=== PATIENT | male | born 1990 | race African-American/Black ===

== ENCOUNTER 2017-04-03 06:36 | Observation (INO) | payer MEDICARE ==
[2017-04-03 06:51] VITALS: BMI 23.0
[2017-04-03] MEDS ORDERED: SODIUM CHLORIDE 1,000 ML IV STA (07:07)
--- NOTE | 2017-04-03 07:10 | PDOC ---
History of Present Illness - General Chief Complaint: Asthma Stated Complaint: DIFFICULTY BREATHING Time Seen by Provider: 04/03/17 07:00 History Source: Patient Exam Limitations: No Limitations - History of Present Illness Initial Comments: 26 yo M history asthma presents with SOB x1 day. He states that he works at [employer], was exposed to dust, started to have difficulty breathing and cough. He c/o wheezing. +Recent upper respiratory infection. Last asthma exacerbation 3 days ago. +Subjective fever. Past History - Past Medical History Allergies/Adverse Reactions: Allergies Allergy/AdvReac Type Severity Reaction Status Date / Time shellfish derived Allergy Verified 04/03/17 06:51 Home Medications: Ambulatory Orders Albuterol Sulfate Inhaler - [Ventolin Hfa Inhaler -] 1 - 2 inh PO Q4H 04/03/17 Asthma: Yes - Psycho/Social/Smoking Cessation Hx Anxiety: No Suicidal Ideation: No Smoking Status: No Smoking History: Never smoked Have you smoked in the past 12 months: No Number of Cigarettes Smoked Daily: 0 Information on smoking cessation initiated: No Hx Alcohol Use: No Drug/Substance Use Hx: No Substance Use Type: None Review of Systems - Review of Systems Able to Perform ROS?: Yes Comments:: GENERAL/CONSTITUTIONAL: +Subjective fever, weakness. HEAD, EYES, EARS, NOSE AND THROAT: No change in vision. No ear pain or discharge. No sore throat. CARDIOVASCULAR: No chest pain or shortness of breath. RESPIRATORY:+Cough and wheezing. No hemoptysis. GASTROINTESTINAL: No nausea, vomiting, diarrhea or constipation. GENITOURINARY: No dysuria, frequency, or change in urination. MUSCULOSKELETAL: No joint or muscle swelling or pain. No neck or back pain. SKIN: No rash NEUROLOGIC: No headache, vertigo, loss of consciousness, or change in strength/ sensation. ENDOCRINE: No increased thirst. No abnormal weight change. HEMATOLOGIC/LYMPHATIC: No anemia, easy bleeding, or history of blood clots. ALLERGIC/IMMUNOLOGIC: No hives or skin allergy. *Physical Exam - Vital Signs Last Vital Signs Temp Pulse Resp BP Pulse Ox 98.1 F 110 H 20 130/100 100 04/03/17 06:38 04/03/17 06:38 04/03/17 06:38 04/03/17 06:38 04/03/17 06:38 - Physical Exam Comments: GENERAL: Awake, alert, and fully oriented, in no acute distress HEAD: No signs of trauma EYES: PERRLA, EOMI, sclera anicteric, conjunctiva clear ENT: Auricles normal inspection, hearing grossly normal, nares patent, oropharynx clear without exudates. Moist mucosa NECK: Normal ROM, supple, no lymphadenopathy, JVD, or masses LUNGS: Diffuse exp wheezes. Dec air entry B/L. Able to speak full sentences. HEART: Regular rate and rhythm, normal S1 and S2, no murmurs, rubs or gallops ABDOMEN: Soft, nontender, normoactive bowel sounds. No guarding, no rebound. No masses EXTREMITIES: Normal range of motion, no edema. No clubbing or cyanosis. No cords, erythema, or tenderness NEUROLOGICAL: Cranial nerves II through XII grossly intact. Normal speech, normal gait SKIN: Warm, Dry, normal turgor, no rashes or lesions noted. ED Treatment Course - LABORATORY CBC & Chemistry Diagram: 04/03/17 10:30 04/03/17 10:30 Medical Decision Making - Medical Decision Making 04/03/17 10:15 XR results d/w patient. Will obtain CT. Currently comfortable in bed, no distress. 04/03/17 11:40 Case d/w hospitalist, will admit. *DC/Admit/Observation/Transfer Diagnosis at time of Disposition: Pneumomediastinum, Pneumopericardium, Asthma exacerbation - Discharge Dispostion Condition at time of disposition: Stable Admit: Yes
[2017-04-03] MEDS ORDERED: ALBUTEROL SO4 2.5/IPRATROPIUM 0.5 INH SOL 3 ML VIAL.NEB. NEB ONE (07:21)
[2017-04-03] MEDS: ALBUTEROL SO4 2.5/IPRATROPIUM 0.5 INH SOL 3 ML VIAL.NEB. NEB SCH ×3 (07:23→08:01)
[2017-04-03 10:37] LABS: BASOPHIL 0.2 % (0-2.0); MCH 30.7 pg (25.7-33.7); MCHC 32.3 g/dl (32.0-35.9); MEAN CELL VOLUME 94.9 fl (80-96); MEAN PLT VOLUME 8.1 fl (7.5-11.1); NEUTROPHILS 95.1 % (42.8-82.8); PLATELET COUNT 152 K/MM3 (134-434); WHITE BLOOD COUNT 11.3 K/mm3 (4.0-10.0)
[2017-04-03 10:59] LABS: ALBUMIN 4.4 g/dl (3.4-5.0); ALK PHOS 117 U/L (45-117); ANION GAP 7 (8-16); BILIRUBIN,TOTAL 0.3 mg/dL (0.2-1.0); CALCIUM 8.7 mg/dL (8.5-10.1); CO2 29 mmol/L (21-32); COCKROFT - GAULT 82.63; CREATININE 1.3 mg/dL (0.7-1.3); GLUCOSE,RANDOM 119 mg/dL (74-106); SGOT/AST 17 U/L (15-37); SGPT/ALT 21 U/L (12-78); TOT PROT 7.8 g/dl (6.4-8.2)
[2017-04-03] MEDS ORDERED: MAGNESIUM SULF 50% (8.12 MEQ/2 ML-1 GM VIAL) IVPB ONE (12:33)
[2017-04-03] MEDS ORDERED: MAGNESIUM SULF 50% (8.12 MEQ/2 ML-1 GM VIAL) ONE (12:41)
[2017-04-03] MEDS ORDERED: ALBUTEROL SO4 0.083% IH SOL 2.5 MG/3 ML VIAL.NEB. NEB PRN (13:07)
[2017-04-03] MEDS ORDERED: ACETAMINOPHEN 325 MG TABLET (FP) PO PRN (13:10)
--- NOTE | 2017-04-03 13:11 | HP ---
CHIEF COMPLAINT: asthma exacerbation PCP: Dr. Fuentes HISTORY OF PRESENT ILLNESS: This 26 yr old male presents to ER with wheezing and dyspnea with hx of asthma. He has attempted to use his inhaler but not able to break the exacerbation. He was given steroids via EMS, duonebs and oxygen. He had some relief however, pt still was not feeling right. He was given an CXR and CT chest with a + finding of pneuomedistial and pneumpericardium. His ox sat at 95% and he is appearing comfortable without distress at this time. Remains to have some wheezing ER course was notable for: (1) asthma exacerbation with CT finding of pneumomedialstinal and pneumopercardium (2)Prehospital given decadron 10 mg IV per triage note (3) Recent Travel: none PAST MEDICAL HISTORY: asthma on ventolin inhaler PAST SURGICAL HISTORY: none Social History: Smoking:quit 2 years ago Alcohol: only socially Drugs: last drug use marijuana 2014 Family History: Allergies shellfish derived Allergy (Verified 04/03/17 06:51) HOME MEDICATIONS: Home Medications Medication Instructions Recorded Albuterol Sulfate Inhaler - 1 - 2 inh PO Q4H 04/03/17 [Ventolin Hfa Inhaler -] REVIEW OF SYSTEMS CONSTITUTIONAL: Absent: fever, chills, diaphoresis, generalized weakness, malaise, loss of appetite, weight change HEENT: Absent: rhinorrhea, nasal congestion, throat pain, throat swelling, difficulty swallowing, mouth swelling, ear pain, eye pain, visual changes CARDIOVASCULAR: Absent: chest pain, syncope, palpitations, irregular heart rate, lightheadedness , peripheral edema RESPIRATORY: Positive: cough, shortness of breath, dyspnea with exertion, orthopnea, wheezing , GASTROINTESTINAL: Absent: abdominal pain, abdominal distension, nausea, vomiting, diarrhea, constipation, melena, hematochezia GENITOURINARY: Absent: dysuria, frequency, urgency, hesitancy, hematuria, flank pain, genital pain MUSCULOSKELETAL: Absent: myalgia, arthralgia, joint swelling, back pain, neck pain SKIN: Absent: rash, itching, pallor HEMATOLOGIC/IMMUNOLOGIC: Absent: easy bleeding, easy bruising, lymphadenopathy, frequent infections ENDOCRINE: Absent: unexplained weight gain, unexplained weight loss, heat intolerance, cold intolerance NEUROLOGIC: Absent: headache, focal weakness or paresthesias, dizziness, unsteady gait, seizure, mental status changes, bladder or bowel incontinence PSYCHIATRIC: Absent: anxiety, depression, suicidal or homicidal ideation, hallucinations. PHYSICAL EXAMINATION Vital Signs - 24 hr 04/03/17 12:38 Pulse Rate [ 106 H Apical] Respiratory 18 Rate Blood Pressure 113/74 [Left Arm] O2 Sat by Pulse 95 Oximetry (%) GENERAL: Awake, alert, and fully oriented, in no acute distress. HEAD: Normal with no signs of trauma. EARS, NOSE, THROAT: Ears normal, nares patent, oropharynx clear without exudates. Moist mucous membranes. NECK: Normal range of motion, supple without lymphadenopathy, JVD, or masses. LUNGS: Breath sounds equal, with + expiratory wheezes, and no crackles. No accessory muscle use. HEART: Regular rate and rhythm, normal S1 and S2 without murmur, rub or gallop. ABDOMEN: Soft, nontender, not distended, normoactive bowel sounds, no guarding, no rebound, no masses. MUSCULOSKELETAL: Normal range of motion at all joints. No bony deformities or tenderness. No CVA tenderness. UPPER EXTREMITIES: 2+ pulses, warm, well-perfused. No cyanosis. No clubbing. No peripheral edema. LOWER EXTREMITIES: 2+ pulses, warm, well-perfused. No calf tenderness. No peripheral edema. NEUROLOGICAL: Cranial nerves II-XII intact. Normal speech. Normal gait. PSYCHIATRIC: Cooperative. Good eye contact. Appropriate mood and affect. SKIN: Warm, dry, normal turgor, no rashes or lesions noted, normal capillary refill. ASSESSMENT/PLAN: 26 yr old male with hx of asthma with an exacerbatin and findings of pneumomedialium, pneumoperidcardialium 1. pneumomedialium, pneumoperidcardialium -pulse ox monitoring if less then 95, notify hospitalist -albuterol neb treatments prn -steroids given prehospitally 2. Admit to med surg on observation and reassess in AM Visit type - Emergency Visit Emergency Visit: Yes ED Registration Date: 04/03/17 Care time: The patient presented to the Emergency Department on the above date and was hospitalized for further evaluation of their emergent condition. - New Patient This patient is new to me today: Yes Date on this admission: 04/03/17 - Critical Care Critical Care patient: No
[2017-04-03] MEDS ORDERED: INFLUENZA VACCINE 60 MCG/0.5 ML (P/F DISP.SYRIN 16-17) IM ONE (14:15)
[2017-04-03] MEDS ORDERED: PNEUMOC 13-VAL CONJ-DIP CRM/PF 0.5 ML DISP.SYRIN IM ONE (14:17)
[2017-04-04 08:32] LABS: BASOPHIL 0.5 % (0-2.0); EOSINOPHIL 0.5 % (0-4.5); MCH 31.2 pg (25.7-33.7); MEAN CELL VOLUME 94.6 fl (80-96); MEAN PLT VOLUME 8.6 fl (7.5-11.1); NEUTROPHILS 68.6 % (42.8-82.8); PLATELET COUNT 165 K/MM3 (134-434); RDW 13.4 % (11.9-15.9); WHITE BLOOD COUNT 10.8 K/mm3 (4.0-10.0)
[2017-04-04 08:59] LABS: ALBUMIN 4.2 g/dl (3.4-5.0); ALK PHOS 95 U/L (45-117); ANION GAP 10 (8-16); BILIRUBIN,TOTAL 0.5 mg/dL (0.2-1.0); CALCIUM 9.4 mg/dL (8.5-10.1); CO2 27 mmol/L (21-32); COCKROFT - GAULT 107.42; GLUCOSE,RANDOM 97 mg/dL (74-106); SGOT/AST 19 U/L (15-37); SGPT/ALT 22 U/L (12-78); TOT PROT 7.6 g/dl (6.4-8.2)
[2017-04-04] MEDS ORDERED: methylPREDNISolone NA SUCC 40 MG/1 ML VIAL IVPB ONE (12:00)
--- NOTE | 2017-04-04 12:02 | PN ---
Physical Exam: SUBJECTIVE: Patient seen and examined. He states he feels better. Able to lay down without having any shortness of breath, denies chest pain. States he was at work ([employer]) and the dust triggered an asthma attack. States his inhaler was not functioning property at that time. Denies chest tightness. OBJECTIVE: +wheezing throughout lung fuentes bilaterally 93% on room air, + non productive cough Will order Solu-medrol 40mg x 1 and re-assess, may consider starting on Prednisone PO taper on d/c Albuterol treatments scheduled CT Chest scan noted WBC 10.8, no fevers Vital Signs Period Temp Pulse Resp BP Sys/Nicole Pulse Ox Last 24 Hr 98.2 F-98.5 F 83-117 16-18 111-143/53-74 93-93 GENERAL: The patient is awake, alert, and fully oriented, in no acute distress. HEAD: Normal with no signs of trauma. EYES: PERRL, extraocular movements intact, sclera anicteric, conjunctiva clear. No ptosis. ENT: Ears normal, nares patent, oropharynx clear without exudates, moist mucous membranes. NECK: Trachea midline, full range of motion, supple. LUNGS: + expiratory wheezing on all lung fuentes, +non productive cough, 93% on room air HEART: Regular rate and rhythm, S1, S2 without murmur, rub or gallop. ABDOMEN: Soft, nontender, nondistended, normoactive bowel sounds, no guarding, no rebound, no hepatosplenomegaly, no masses. EXTREMITIES: 2+ pulses, warm, well-perfused, no edema. NEUROLOGICAL: Normal speech, gait not observed. PSYCH: Normal mood, normal affect. SKIN: Warm, dry, normal turgor, no rashes or lesions noted Laboratory Results - last 24 hr 04/04/17 04/04/17 07:30 07:30 WBC 10.8 H RBC 4.80 Hgb 15.0 Hct 45.4 MCV 94.6 MCHC 33.0 RDW 13.4 Plt Count 165 MPV 8.6 Neutrophils % 68.6 D Lymphocytes % 23.4 D Monocytes % 7.0 D Eosinophils % 0.5 D Basophils % 0.5 Sodium 140 Potassium 3.5 Chloride 103 Carbon Dioxide 27 Anion Gap 10 BUN 12 D Creatinine 1.0 D Creat Clearance w eGFR > 60 Random Glucose 97 Calcium 9.4 Total Bilirubin 0.5 D AST 19 ALT 22 Alkaline Phosphatase 95 Total Protein 7.6 Albumin 4.2 Active Medications Generic Name Dose Route Start Last Admin Trade Name Freq PRN Reason Stop Dose Admin Acetaminophen 650 mg 04/03/17 13:10 Tylenol - PO Q6H PRN FEVER OR PAIN Albuterol Sulfate 1 amp 04/03/17 13:07 04/03/17 22:47 Ventolin 0.083% Nebulizer Soln - NEB 1 amp Q6H PRN Administration SHORT OF BREATH/WHEEZING ASSESSMENT/PLAN: Patient is a 26 year old male with significant past medical history of asthma with an acute exacerbation less than 1 week ago. He presented to the ER on 2016 with wheezing and dyspnea. He attempted to use the inhaler at home with no relief. He was given IV steroids duonebs and oxygen by EMS. On today's exam he still has expiratory wheezing throughout bilateral lung fuentes. He states he is more comfortable now and able to tolerate room air. He denies shortness of breath or chest discomfort. Imaging: Chest CT 04/03/2017: asthma exacerbation with CT finding of pneumomedialstinal and pneumopercardium Pulmonary: Acute asthma exacerbation - acute on chronic Likely induced environmental exposure Assessment/Plan: Has shown improvement since admission Now able to lay flat, tolerating room air, +non productive cough On Albuterol nebs scheduled Supplemental oxygen as needed Monitor oxygen saturations on room air Will schedule Solumedrol q6 and monitor for improvement WBC 10.8, afebrile, appears well, monitor off antibiotics Pulmonary consulted Pneumomediastinum likely secondarty to excessive coughing, acute asthma exc. Monitor respiratory status F.E.N. Fluids: tolerating PO intake Electrolytes: within normal limits/daily bmp Nutrition: regular diet Prophylaxis: GI: will start on Protonix while on steroids DVT: ambulatory patient Disposition: requires inpatient hospitalization. Patient does not currently have a skelp processor as an outpatient. Needs referral on discharge. Full Code. Visit type - Emergency Visit Emergency Visit: Yes ED Registration Date: 04/03/17 Care time: The patient presented to the Emergency Department on the above date and was hospitalized for further evaluation of their emergent condition. - New Patient This patient is new to me today: Yes Date on this admission: 04/04/17 - Critical Care Critical Care patient: No - Discharge Referral Referred to [facility] Med P.C.: No
[2017-04-04] MEDS: ALBUTEROL SO4 0.083% IH SOL 2.5 MG/3 ML VIAL.NEB. NEB SCH ×4 (13:04→22:20)
--- NOTE | 2017-04-04 15:12 | CON.PULM ---
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 Cardio/Vascular: No: AFIB Pulmonary: Yes: Asthma Gastrointestinal: No: Ascites Hepatobiliary: No: Cirrhosis Renal/: No: Renal Failure Heme/Onc: No: Anemia Psych: No: Addictions Musculoskeletal: No: Bursitis Rheumatology: No: Fibromyalgia Endocrine: No: Diabetes Mellitus - Alcohol/Substance Use Hx Alcohol Use: No History of Substance Use: reports: None - Smoking History Smoking history: Never smoked Have you smoked in the past 12 months: No Aproximately how many cigarettes per day: 0 - Social History ADL: Independent Place of : [facility] History of Recent Travel: No Home Medications - Allergies Allergies/Adverse Reactions: Allergies Allergy/AdvReac Type Severity Reaction Status Date / Time shellfish derived Allergy Verified 04/03/17 06:51 - Home Medications Home Medications: Ambulatory Orders Albuterol Sulfate Inhaler - [Ventolin Hfa Inhaler -] 1 - 2 inh PO Q4H 04/03/17 Family Disease History - Family Disease History Family History: Unremarkable Review of Systems - Review of Systems Constitutional: denies: Fever Eyes: denies: Blurred Vision HENT: denies: Difficult Swallowing Neck: denies: Decreased ROM Cardiovascular: denies: Chest Pain Respiratory: reports: Cough, Exercise Intolerance, SOB on Exertion, Wheezing. denies: Hemoptysis, Orthopnea Gastrointestinal: reports: No Symptoms Genitourinary: reports: No Symptoms Physical Exam Vital Sings: Vital Signs Temperature 98.2 F 04/04/17 08:00 Pulse Rate 89 04/04/17 08:00 Respiratory Rate 18 04/04/17 08:00 Blood Pressure 125/74 04/04/17 08:00 O2 Sat by Pulse Oximetry (%) 94 L 04/04/17 09:00 Constitutional: Yes: Calm Eyes: Yes: EOM Intact HENT: Yes: Normocephalic Neck: Yes: Trachea Midline Cardiovascular: Yes: Regular Rate and Rhythm Respiratory: Yes: Wheezes Gastrointestinal: Yes: Soft Extremities: Yes: WNL Neurological: Yes: WNL Psychiatric: Yes: WNL Labs: CBC, BMP 04/04/17 07:30 04/04/17 07:30 REST REVIEWED Imaging - Results Chest X-ray: Image Reviewed Cat Scan: Image Reviewed Problem List - Problems (1) Asthma exacerbation Code(s): J45.901 - UNSPECIFIED ASTHMA WITH (ACUTE) EXACERBATION (2) Pneumomediastinum Code(s): J98.2 - INTERSTITIAL EMPHYSEMA (3) Pneumopericardium Code(s): I31.9 - DISEASE OF PERICARDIUM, UNSPECIFIED Assessment/Plan ACUTE EXACERBATION OF UNDERLYING ASTHMA URI BAROTRAUMA FROM COUGHING LEADING TO UNCOMPLICATED PNEUMO-MEDIASTINUM BRONCHODILATORS/SOLUMEDROL/O2/ANTIBIOTICS WILL FOLLOW Jitendra ROJAS MD
[2017-04-04] MEDS: CEFTRIAXONE 50 ML IVPB SCH (16:12)
[2017-04-04] MEDS: methylPREDNISolone NA SUCC 40 MG/1 ML VIAL IVPB SCH ×2 (18:23→21:08)
[2017-04-05] MEDS: ALBUTEROL SO4 0.083% IH SOL 2.5 MG/3 ML VIAL.NEB. NEB SCH ×3 (02:19→10:28)
[2017-04-05] MEDS: methylPREDNISolone NA SUCC 40 MG/1 ML VIAL IVPB SCH ×2 (02:35→09:07)
[2017-04-05 06:09] VITALS: BP 122/62; PULSE 81; TEMP 98.6
[2017-04-05 08:19] LABS: MCH 31.1 pg (25.7-33.7); MCHC 33.2 g/dl (32.0-35.9); MEAN CELL VOLUME 93.6 fl (80-96); PLATELET COUNT 183 K/MM3 (134-434); RDW 13.4 % (11.9-15.9)
[2017-04-05 08:29] LABS: ALK PHOS 86 U/L (45-117); ANION GAP 11 (8-16); BILIRUBIN,TOTAL 0.3 mg/dL (0.2-1.0); CALCIUM 9.2 mg/dL (8.5-10.1); CO2 25 mmol/L (21-32); COCKROFT - GAULT 119.36; CREATININE 0.9 mg/dL (0.7-1.3); GLUCOSE,RANDOM 104 mg/dL (74-106); SGOT/AST 13 U/L (15-37); SGPT/ALT 19 U/L (12-78); TOT PROT 7.4 g/dl (6.4-8.2)
[2017-04-05] MEDS: CEFTRIAXONE 50 ML IVPB SCH (09:08)
[2017-04-05] MEDS ORDERED: PANTOPRAZOLE 40 MG TABLET (FP) PO SCH (10:00)
[2017-04-05 11:47] LABS: PLATELET ESTIMATE ADEQUATE (NORMAL)
--- NOTE | 2017-04-05 12:19 | DS ---
Physical Exam: SUBJECTIVE: Patient seen and examined. He is asking to go home today and return back to work. He denies shortness of breath. States he was ambulating up and down the pod without experiencing any shortness of breath. OBJECTIVE: Lungs clear, no wheezing noted on exam. Spoke to patient about finishing taper of Prednisone and antibiotics as prescribed. Vital Signs Period Temp Pulse Resp BP Sys/Nicole Pulse Ox Last 24 Hr 97.6 F-98.6 F 80-88 16-20 111-122/54-63 94-96 PHYSICAL EXAM GENERAL: The patient is awake, alert, and fully oriented, in no acute distress. HEAD: Normal with no signs of trauma. EYES: PERRL, extraocular movements intact, sclera anicteric, conjunctiva clear. ENT: Ears normal, nares patent, oropharynx clear without exudates, moist mucous membranes. NECK: Trachea midline, full range of motion, supple. LUNGS: Breath sounds equal, clear to auscultation bilaterally, no wheezes, no crackles, no accessory muscle use. HEART: Regular rate and rhythm, S1, S2 without murmur, rub or gallop. ABDOMEN: Soft, nontender, nondistended, normoactive bowel sounds, no guarding, no rebound, no hepatosplenomegaly, no masses. EXTREMITIES: 2+ pulses, warm, well-perfused, no edema. NEUROLOGICAL: Normal speech, steady gait PSYCH: Normal mood, normal affect. SKIN: Warm, dry, normal turgor, no rashes or lesions noted. LABS Laboratory Results - last 24 hr 04/05/17 04/05/17 06:00 06:00 WBC 10.0 RBC 4.72 Hgb 14.7 Hct 44.2 MCV 93.6 MCHC 33.2 RDW 13.4 Plt Count 183 MPV 9.0 Neutrophils % 84.0 H D Lymphocytes % 16.0 D Differential Comment Manual diff done Platelet Estimate Adequate Sodium 138 Potassium 4.0 Chloride 102 Carbon Dioxide 25 Anion Gap 11 BUN 14 Creatinine 0.9 Creat Clearance w eGFR > 60 Random Glucose 104 Calcium 9.2 Total Bilirubin 0.3 D AST 13 L D ALT 19 Alkaline Phosphatase 86 Total Protein 7.4 Albumin 4.0 HOSPITAL COURSE: Date of Admission:04/03/17 Date of Discharge: 04/05/17 Patient is a 26 year old male with significant past medical history of asthma with an acute exacerbation less than 1 week ago. He presented to the ER on 2016 with wheezing and dyspnea. He attempted to use the inhaler at home with no relief. He was given IV steroids duonebs and oxygen by EMS. Imaging: Chest CT 04/03/2017: asthma exacerbation with CT finding of pneumomedialstinal and pneumopercardium Pulmonary: Acute asthma exacerbation - much improved Likely induced environmental exposure Assessment/Plan: Now able to lay flat, tolerating room air, +non productive cough Able to ambulate without shortness of breath Has home inhalers Steriod taper until complete Pneumomediastinum likely secondarty to excessive coughing, acute asthma exc. needs repeat chest xray within 1-2 weeks as outpatient PCP follow up within 1 week, pulmonology consult Disposition: Discharge on Levaquin 750mg for 5 more days, Prednisone taper as outlined on d/c instructions and Protonix while on Prednisone. Close PCP follow up, will need repeat Chest Xray within 1 -2 weeks. Please follow up with new Coremaking Machine Setter. Minutes to complete discharge: 45 Discharge Summary Reason For Visit: MEDIASTINAL EMPHYSEMA,PNEUMOPERICARDIUM Current Active Problems Asthma exacerbation (Acute) Pneumomediastinum (Acute) Pneumopericardium (Acute) Condition: Improved - Instructions Diet, Activity, Other Instructions: Mr. Pandey: Please take medications as prescribed. As discussed, taper the Prednisone and do not stop abruptly. Take antibiotics as prescribed. Please wear a mask when you are at work to avoid any dust irritants. Please return to the ER if you experience any worsening shortness of breath or if you start wheezing. Please repeat chest xray with your PCP within 1 to 2 weeks to follow up on Pneumomediastinum and Pneumopericardium. Prednisone taper as follows Date Dose 04/06/2017 Prednisone 60mg 04/07/2017 Prednisone 50mg 04/08/2017 Prednisone 40mg 04/09/2017 Prednisone 30mg 04/10/2017 Prednisone 20mg 04/11/2017 Prednisone 10mg Then stop prednisone Medications prescribed: 1. Levaquin 750mg for 5 more days start tomorrow 04/06/2017 > 04/10/2017 2. Prednisone as noted above - taper/start tomorrow 3. Protonix - Take this medication while on Prednisone as it will protects your stomach while you are on the Prednisone. Any questions please do not hesitate to call Dee Dee Uche Frandy SPANISH PROFESSOR [phone] 7am to 7pm. Referrals: Keith Monzon MD [Staff Physician] - Beni Fuentes [Non Staff, Medical] - Disposition: HOME - Home Medications Comprehensive Discharge Medication List: Ambulatory Orders Albuterol Sulfate Inhaler - [Ventolin Hfa Inhaler -] 1 - 2 inh PO Q4H 04/03/17 This patient is new to me today: No Emergency Visit: Yes ED Registration Date: 04/03/17 Care time: The patient presented to the Emergency Department on the above date and was hospitalized for further evaluation of their emergent condition. Critical Care patient: No - Discharge Referral Referred to [facility] Med P.C.: No
== END 2017-04-05 14:36 | disposition home or self-care (01) ==
LOC: JER 06:36 → JERBED 11:42 → UNDOADMOB 11:42 → INTOOBSV 11:42 → JERBED 13:03 → J6S 13:32
PROVIDERS: ADMIT Internal Medicine; ATTEND Nurse Practitioner Family
PROC: 3E03329 Introduction of Other Anti-infective into Peripheral Vein, Percutaneous Approach (ICD-10-PCS; principal; 2017-04-03)
PROC: 3E0333Z Introduction of Anti-inflammatory into Peripheral Vein, Percutaneous Approach (ICD-10-PCS; 2017-04-03)
PROC: 3E0337Z Introduction of Electrolytic and Water Balance Substance into Peripheral Vein, Percutaneous Approach (ICD-10-PCS; 2017-04-03)
PROC: 3E0F7GC Introduction of Other Therapeutic Substance into Respiratory Tract, Via Natural or Artificial Opening (ICD-10-PCS; 2017-04-03)
PROC: 3E0F7GC Introduction of Other Therapeutic Substance into Respiratory Tract, Via Natural or Artificial Opening (ICD-10-PCS; 2017-04-03)
DX: J45.901 Unspecified asthma with (acute) exacerbation (principal); J98.2 Interstitial emphysema; I31.9 Disease of pericardium, unspecified
CPT/HCPCS: 36415; 71010-TC; 71250-TC; 80053; 85025; 94640; 99283-25; G0378